=== PATIENT | male | born 1985 | race Caucasian/White ===

== ENCOUNTER 2017-05-13 08:17 | Emergency (ER) | payer OTHER ==
[~2017-05-13] VITALS: Ht 182.9 cm; Wt 104.3 kg
--- NOTE | 2017-05-13 09:57 | NUR ---
Patient discharged to home in stable conditon. Written and verbal after care instructions given. Patient verbalizes understanding of instructions. Pt was given extensive verbal ACI by Dr. Burch. Stressed follow up or return to ER for worsening s/s.
[2017-05-15 09:09] LABS: *GC NAA Negative (Negative); *TRIC.VAG. NAA Negative (Negative)
== END 2017-05-13 10:18 | disposition home or self-care (01) ==
LOC: ER 08:17
DX: A60.00 Herpesviral infection of urogenital system, unspecified (principal)
CPT/HCPCS: 36415; 86592; 87491; 87536; 99283; A4663